=== PATIENT | male | born 1975 | race American Indian/Alaskan Native ===

== ENCOUNTER 2017-11-26 18:35 | Emergency (ER) | payer OTHER ==
[2017-11-26 18:48] VITALS: BP 122/78
[2017-11-26] MEDS ORDERED: ZOFRAN ODT PO ONE (20:07)
[2017-11-26] MEDS ORDERED: IMITREX SUB-Q ONE (20:07)
--- NOTE | 2017-11-26 20:08 | Emergency Department Report ---
ED Headache HPI - General Chief Complaint: Headache Stated Complaint: HEADACHE Time Seen by Provider: 11/26/17 20:00 Source: patient, old records - History of Present Illness Timing/Duration: constant, other (today) Quality: moderate Recent Head Trauma: frequent headaches, chronic headaches Associated Symptoms: denies symptoms, other (nausea) Allergies/Adverse Reactions: Allergies No Known Allergies Allergy (Verified 11/25/16 19:28) ED Review of Systems ROS: Stated complaint: HEADACHE Other details as noted in HPI Comment: All other systems reviewed and negative Constitutional: no symptoms reported. denies: chills, fever Eyes: as per HPI. denies: eye pain, eye discharge, vision change ENT: as per HPI. denies: ear pain, dental pain Respiratory: no symptoms reported. denies: cough, shortness of breath Cardiovascular: as per HPI. denies: chest pain Endocrine: no symptoms reported Neurological: as per HPI, headache. denies: weakness, numbness, paresthesias, confusion, abnormal gait, vertigo Psychiatric: as per HPI Hematological/Lymphatic: as per HPI ED Past Medical Hx - Past Medical History Previous Medical History?: Yes Hx Headaches / Migraines: Yes Additional medical history: Headache, - Surgical History Past Surgical History?: No - Social History Smoking Status: Never Smoker Substance Use Type: Prescribed ED Physical Exam - General Limitations: No Limitations General appearance: alert, anxious - Head Head exam: Present: atraumatic - Eye Eye exam: Present: PERRL, EOMI. Absent: scleral icterus, conjunctival injection , nystagmus, periorbital swelling, periorbital tenderness Pupils: Present: normal accommodation - ENT ENT exam: Present: normal exam, mucous membranes moist - Neck Neck exam: Present: normal inspection - Respiratory Respiratory exam: Present: normal lung sounds bilaterally - Cardiovascular Cardiovascular Exam: Present: regular rate - GI/Abdominal GI/Abdominal exam: Present: soft - Rectal Rectal exam: Present: deferred - Extremities Exam Extremities exam: Present: normal inspection, full ROM. Absent: tenderness - Back Exam Back exam: Present: normal inspection. Absent: full ROM, tenderness, CVA tenderness (R) - Neurological Exam Neurological exam: Present: alert, oriented X3, CN II-XII intact, normal gait, reflexes normal. Absent: abnormal gait, motor sensory deficit - Psychiatric Psychiatric exam: Absent: normal affect (odd affect) - Skin Skin exam: Present: warm, dry, intact ED Course Vital Signs 11/26/17 18:44 Temperature 97.8 F Pulse Rate 61 Respiratory 18 Rate Blood Pressure 122/78 O2 Sat by Pulse 100 Oximetry - Reevaluation(s) Reevaluation #1: 11/26/17 21:24 She presents to the ER today with a migraine headache. He was unable to abort with his usual Topamax at home. Patient reports that he is on Topamax and propranolol at home. He sees Dr. Najera for his headaches. He states that this headache is worse than normal. Was not associated with an RN notes a generalized headache. Patient denies photophobia. He reports he is nauseated but has not vomited. He drove himself to the emergency room. He is ambulatory with no focal neurodeficit. However, the patient does have a strange or some odd affect. He has no CT of record on the EMR here at [facility]. Due to his affect CT was done and reported to be negative for acute process but there is some calcification of the basal ganglia which would be beneficial for patient to have a neurology consult for. Patient was given sumatriptan subcutaneous here with Zofran and he states that the pain is much improved and he does appear to be more communicative and interactive with provider than he was when he first name. Vital signs are stable. No fever nontoxic and [id number].neuro intact. no head trauma no hypertension no underlying significant past medical history dc home w neuro follow up ED Medical Decision Making - Radiology Data Radiology results: report reviewed - Medical Decision Making see note took topamax at home w no relief Dr Najera sees pt. - Differential Diagnosis headache w hx migraines Critical care attestation.: If time is entered above; I have spent that time in minutes in the direct care of this critically ill patient, excluding procedure time. ED Disposition Clinical Impression: Headache Disposition: DC-01 TO HOME OR SELFCARE Is pt being admited?: No Does the pt Need Aspirin: No Condition: Stable Instructions: Migraine Headache (ED), Acute Headache (ED) Additional Instructions: continue your home medications follow up with [facility] this week- see name below Tell the MD you had a CT here and they will be able to get your results avoid triggers for migraine hydrate well return to ER for worsening pain or neuro changes. Referrals: PRIMARY CARE, [Referring] - 3-5 Days MACKENZIE CARPIO MD [Referring] - 3-5 Days Time of Disposition: 21:21
--- NOTE | 2017-11-26 21:00 | Cat Scan Report ---
FINAL REPORT EXAM: CT HEAD/BRAIN WO CON HISTORY: headache TECHNIQUE: Standard unenhanced CT of the head at 5.0 millimeter axial increments. PRIORS: None. FINDINGS: The ventricular system is normal in size and configuration. There is no evidence for parenchymal volume loss. Focal high density in the left basal ganglia is likely calcification. No surrounding edema or mass effect is identified. There is no evidence for mass lesion, mass effect, midline shift, acute intracranial hemorrhage, or acute ischemia/ infarction. No evidence for acute skull fracture is seen. No abnormality in the overlying scalp soft tissues is seen. Visualized paranasal sinuses demonstrates mucosal thickening in the right maxillary sinus suggesting chronic sinusitis. IMPRESSION: Right maxillary sinusitis. Probable calcification in the left basal ganglia. No acute intracranial process noted.
== END 2017-11-26 21:32 | disposition home or self-care (01) ==
LOC: ED 18:35
DX: G43.909 Migraine, unspecified, not intractable, without status migrainosus (principal); G89.29 Other chronic pain
CPT/HCPCS: 70450; 96372; J3030; Q0162